=== PATIENT | female | born 1975 | race Caucasian/White ===

== ENCOUNTER 2018-12-01 09:05 | Emergency (ER) | payer MEDICAID ==
[~2018-12-01] VITALS: Ht 172.7 cm; Wt 83.9 kg
[2018-12-01 09:28] VITALS: BP_SYST 159
--- NOTE | 2018-12-01 09:46 | NUR ---
Patient to ER bed 7 to gown for evaluation. Side rails up. Report given to Cristina WORTHY.
--- NOTE | 2018-12-01 09:50 | NUR ---
patient c/o cough x2 week and treated x2 weeks ago. patient still SOB and O2 sat 96%. AAOx4.
--- NOTE | 2018-12-01 10:20 | NUR ---
Per patient was seen by Dr. Hughes and will receiving RX.
[2018-12-01 10:40] VITALS: BP_SYST 116
--- NOTE | 2018-12-01 10:43 | NUR ---
Patient given written and verbal discharge instructions and verbalizes understanding. ER MD discussed with patient the results and treatment provided. Patient in stable condition. ID arm band removed. Rx of zithromax and cough syrup given. Patient educated on pain management and to follow up with PMD. Pain Scale 0/10. Opportunity for questions provided and answered. Medication side effect fact sheet provided.
== END 2018-12-01 10:40 | disposition home or self-care (01) ==
LOC: SED 09:05
DX: J02.8 Acute pharyngitis due to other specified organisms (principal); R03.0 Elevated blood-pressure reading, without diagnosis of hypertension; B96.89 Other specified bacterial agents as the cause of diseases classified elsewhere; Z88.0 Allergy status to penicillin
CPT/HCPCS: 71046-TC; 81025; 99283